=== PATIENT | male | born 1955 | race Caucasian/White ===

== ENCOUNTER 2017-11-30 02:03 | Emergency (ER) | payer OTHER ==
[~2017-11-30] VITALS: Ht 165.1 cm; Wt 65.8 kg
[~2017-11-30 02:03] MED LIST: ASPI81CH PO; ATOR40TA PO; AZOR PO; BENICAR 40MG PO; CITA20 PO; CLOP75 PO; HYDACE7.5 PO; INSLI100I SUBQ; INSULANI SUBQ; JANUMET PO; NEBI10 PO; NITRSPRAY PO; PHENA200 PO; TAMS.4ER PO; VARE1 PO
[2017-11-30] MEDS ORDERED: METO25ER PO (02:09)
[2017-11-30] MEDS ORDERED: TAMS.4ER PO (02:10)
[2017-11-30] MEDS ORDERED: CYCL10 PO (02:11)
[2017-11-30] MEDS ORDERED: TOUJEO SOL300 UNIT/1 SC (02:12)
[2017-11-30 02:19] LABS: PCO2 Arterial 26.4 mmHg (35-45); PO2 Arterial 197 mmHg (80-100); pH Blood Arterial 7.24 (7.35-7.45)
[2017-11-30 02:20] LABS: Calcium, Ionized (POC) 1.17 mmol/L (1.10-1.46); Chloride (POC) 99 mmol/L (98-108); Creatinine (POC) 1.2 mg/dL (0.8-1.3); Glucose (ISTAT POC) 498 mg/dL (70-99); Hemoglobin (POC) 9.5 g/dL (13.5-17.5); Potassium (POC) 3.8 mmol/L (3.5-5.5); Sodium (POC) 135 mmol/L (135-148); Total CO2 (POC) 17 mmol/L (21-32)
[2017-11-30 02:22] LABS: BASOPHILS ABSOLUTE AUTO 0.06 K/mm3 (0.00-0.23); BASOPHILS PERCENT AUTO 0 % (0-2); EOSINOPHILS ABSOLUTE AUTO 0.13 K/mm3 (0.00-0.68); EOSINOPHILS PERCENT AUTO 1 % (0-6); Hematocrit 30.6 % (37.0-53.0); Hemoglobin 10.2 g/dL (13.5-17.5); Mean Corpuscular HGB 30.4 pg (26.0-34.0); Mean Corpuscular HGB Conc 33.3 g/dL (31.5-36.5); Mean Corpuscular Volume 91 fL (80-100); Mean Platelet Volume 12.1 fL (9.1-12.4); Platelet Count 160 K/mm3 (150-400); RDW Coefficient Variation 13.9 % (11.7-14.2); RDW Standard Deviation 46.7 fL (35.1-46.3); Red Blood Cell Count 3.35 M/mm3 (4.30-5.90); White Blood Cell Count 18.83 K/mm3 (4.00-11.30)
[2017-11-30 02:27] LABS: IMMATURE GRAN ABSOLUTE AUTO 0.34 K/mm3 (0.00-0.10); IMMATURE GRAN PERCENT AUTO 2 % (0-1); LYMPHOCYTES ABSOLUTE AUTO 7.25 K/mm3 (0.84-5.20); LYMPHOCYTES PERCENT AUTO 39 % (21-46); MONOCYTES ABSOLUTE AUTO 1.18 K/mm3 (0.16-1.47); MONOCYTES PERCENT AUTO 6 % (4-13); NEUTROPHILS ABSOLUTE AUTO 9.87 K/mm3 (1.96-9.15); NEUTROPHILS PERCENT AUTO 52 % (41-73)
[2017-11-30 02:37] LABS: International Normalized Ratio 1.23; Prothrombin Time Results 12.9 Sec (9.7-11.5)
[2017-11-30 02:39] LABS: Alanine Aminotransfer (ALT/SGP 87 U/L (12-78); Albumin, Blood 2.7 g/dL (3.4-5.0); Albumin/Globulin Ratio 0.9 (0.8-1.8); Alk Phos 54 U/L (50-136); Anion Gap 20 mmol/L (6-16); Aspartate Aminotrans (AST/SGOT 55 U/L (12-37); Blood Urea Nitrogen 34 mg/dL (8-24); Bun/Creatinine Ratio 30.4 (12.0-20.0); CO2, Blood 17 mmol/L (21-32); Calcium, Blood 8.7 mg/dL (8.5-10.1); Chloride, Blood 101 mmol/L (98-108); Creatinine, Blood 1.12 mg/dL (0.60-1.20); Ethanol (Alcohol), Blood, Med <3 mg/dL; Glomerular Filtration Rate >60 (60-); Glucose, Blood 515 mg/dL (70-99); Potassium, Blood 3.9 mmol/L (3.5-5.5); Sodium, Blood 138 mmol/L (136-145); Total Protein, Blood 5.7 g/dL (6.4-8.2)
[2017-11-30 03:00] LABS: Calcium, Ionized (POC) 0.96 mmol/L (1.10-1.46); Chloride (POC) 104 mmol/L (98-108); Creatinine (POC) 0.9 mg/dL (0.8-1.3); Glucose (ISTAT POC) 450 mg/dL (70-99); Hemoglobin (POC) 9.9 g/dL (13.5-17.5); Potassium (POC) 4.1 mmol/L (3.5-5.5); Sodium (POC) 138 mmol/L (135-148); Total CO2 (POC) 14 mmol/L (21-32)
[2017-11-30 03:27] LABS: Source, Urine Catheter
[2017-11-30 03:39] LABS: Bilirubin, Urine Neg (Neg); Blood, Urine 2+ (Neg); Glucose Qualitative, Urine 4+ (Neg); Ketones, Urine 2+ (Neg); Leukocyte Esterase, Urine Neg (Neg); Nitrite, Urine Neg (Neg); Protein, Urine 1+ (Neg); Specific Gravity, Urine 1.015 (1.003-1.022); Urobilinogen, Urine NORM (Normal)
[2017-11-30 03:47] LABS: Appearance, Urine Clear (Clear); Bacteria Few /hpf; Color, Urine Yellow (P-Yellow); Mucus Light (0-Heavy); Squamous Epithelial Cells Not Seen /hpf (Few); White Blood Cells, Urine 0-2 /hpf (0-5)
[2018-02-16] MEDS ORDERED: NADO40 PO (12:33)
[2018-03-29] MEDS ORDERED: EPCLUSA 400 MG1 EACH (15:36)
[2018-07-31] MEDS ORDERED: Metformin HCl500 MG PO (12:25)
[2018-07-31] MEDS ORDERED: PIOG30 PO (12:26)
[2018-07-31] MEDS ORDERED: CYCL10 PO (15:53)
[2018-08-02] MEDS ORDERED: LISI5 PO (15:41)
[2018-08-02] MEDS ORDERED: K-TAB ER20 MEQ PO (15:43)
[2018-08-02] MEDS ORDERED: FURO40 PO (15:44)
== END 2017-11-30 03:40 | disposition short-term general hospital (02) ==
LOC: ER 02:03
PROVIDERS: Emergency Medicine
DX: K92.2 Gastrointestinal hemorrhage, unspecified (principal); Z88.8 Allergy status to other drugs, medicaments and biological substances; Z88.5 Allergy status to narcotic agent; Z79.899 Other long term (current) drug therapy; Z79.4 Long term (current) use of insulin; Z85.51 Personal history of malignant neoplasm of bladder; F17.210 Nicotine dependence, cigarettes, uncomplicated
CPT/HCPCS: 31500; 31720; 36415; 36430; 36556; 36600; 80047; 80053; 81001; 82803; 83690; 85014; 85025; 85610; 85730; 86850; 86900; 86901; 86923; 86927; 93005; 93010; 94002; 96365; 96368; 96375; 99291; 99292; C1751; C9113; G0480; J0330; J0696; J2250; J2405; J7030; J7050; P9016; P9059

== ENCOUNTER 2018-02-16 12:04 | Day surgery (SDC) | payer OTHER ==
[~2018-02-16] VITALS: Ht 165.1 cm; Wt 65.9 kg
[~2018-02-16 12:04] MED LIST changes: +CYCL10 PO; +METO25ER PO; +TOUJEO SOL300 UNIT/1 SC
[2018-02-16] MEDS ORDERED: NADO40 (12:33)
[2018-02-16] MEDS ORDERED: ASPI81CH PO (12:33)
[2018-02-16] MEDS ORDERED: TOUJEO SOL300 UNIT/1 SQ (12:34)
== END 2018-02-16 14:24 | disposition home or self-care (01) ==
LOC: ORSCSDS 12:04
PROVIDERS: Internal Medicine Gastroenterology
PROC: 06L38CZ Occlusion of Esophageal Vein with Extraluminal Device, Via Natural or Artificial Opening Endoscopic (ICD-10-PCS; principal; 2018-02-16 13:15)
DX: I85.00 Esophageal varices without bleeding (principal); K20.9 Esophagitis, unspecified; K31.9 Disease of stomach and duodenum, unspecified; K74.60 Unspecified cirrhosis of liver; B19.20 Unspecified viral hepatitis C without hepatic coma; E11.9 Type 2 diabetes mellitus without complications; I25.10 Atherosclerotic heart disease of native coronary artery without angina pectoris; Z95.1 Presence of aortocoronary bypass graft; I10 Essential (primary) hypertension; E78.5 Hyperlipidemia, unspecified; N40.0 Benign prostatic hyperplasia without lower urinary tract symptoms; F32.9 Major depressive disorder, single episode, unspecified; Z87.891 Personal history of nicotine dependence; Z79.4 Long term (current) use of insulin; Z79.899 Other long term (current) drug therapy
CPT/HCPCS: 82947; J7120

== ENCOUNTER 2018-04-06 09:34 | Day surgery (SDC) | payer OTHER ==
[~2018-04-06] VITALS: Ht 165.1 cm; Wt 66.4 kg
[~2018-04-06 09:34] MED LIST changes: +EPCLUSA 400 MG1 EACH; +NADO40; +TOUJEO SOL300 UNIT/1 SQ
== END 2018-04-06 11:10 | disposition home or self-care (01) ==
LOC: ORSCSDS 09:34
PROVIDERS: Internal Medicine Gastroenterology
PROC: 0DJ08ZZ Inspection of Upper Intestinal Tract, Via Natural or Artificial Opening Endoscopic (ICD-10-PCS; principal; 2018-04-06 10:45)
DX: I85.00 Esophageal varices without bleeding (principal); K31.9 Disease of stomach and duodenum, unspecified; K29.80 Duodenitis without bleeding; B19.20 Unspecified viral hepatitis C without hepatic coma; E11.9 Type 2 diabetes mellitus without complications; J44.9 Chronic obstructive pulmonary disease, unspecified; I25.10 Atherosclerotic heart disease of native coronary artery without angina pectoris; I25.2 Old myocardial infarction; Z79.899 Other long term (current) drug therapy; F17.210 Nicotine dependence, cigarettes, uncomplicated
CPT/HCPCS: 82947; J2250; J7120

== ENCOUNTER 2018-11-08 14:12 | Day surgery (SDC) | payer MEDICARE ==
[~2018-11-08] VITALS: Ht 165.1 cm; Wt 73.9 kg
[~2018-11-08 14:12] MED LIST changes: +FURO40 PO; +K-TAB ER20 MEQ PO; +LISI5 PO; +Metformin HCl500 MG PO; -NADO40; +NADO40 PO; +PIOG30 PO
[2018-11-08] MEDS ORDERED: ISOD40ER PO (15:13)
[2018-11-08] MEDS ORDERED: NITRSPRAY SL (15:15)
--- NOTE | 2018-11-08 15:36 | NUR ---
11/08/18 1536 Oleg Kuo See Anesthesia recordBite Block PlacedPatient to ENDO 1History, Chart, Medications and Allergies reviewed before start of procedure.MONITOR INTACT WITH CONTINUOUS PULSE OXIMETRY AND INTERMITTENT BP.O2 VIA N/C INTACT THROUGHOUT SEDATION/PROCEDURE.
== END 2018-11-08 23:00 | disposition home or self-care (01) ==
LOC: ORSCMMR 14:12 → ORD 16:00 → ORSCMMR 23:00
PROVIDERS: Internal Medicine Gastroenterology
PROC: 0DJ08ZZ Inspection of Upper Intestinal Tract, Via Natural or Artificial Opening Endoscopic (ICD-10-PCS; principal; 2018-11-08 16:00)
DX: I85.00 Esophageal varices without bleeding (principal); K76.6 Portal hypertension; K31.89 Other diseases of stomach and duodenum; K29.80 Duodenitis without bleeding; B19.20 Unspecified viral hepatitis C without hepatic coma; I10 Essential (primary) hypertension; I25.10 Atherosclerotic heart disease of native coronary artery without angina pectoris; E11.9 Type 2 diabetes mellitus without complications; F17.210 Nicotine dependence, cigarettes, uncomplicated; Z79.899 Other long term (current) drug therapy
CPT/HCPCS: 82947; J2250; J7120

== ENCOUNTER 2019-11-29 08:52 | Day surgery (SDC) | payer MEDICARE ==
[~2019-11-29] VITALS: Ht 165.1 cm; Wt 64.9 kg
[~2019-11-29 08:52] MED LIST changes: +ISOD40ER PO; +NITRSPRAY SL
[2019-11-29] MEDS ORDERED: METO25ER (09:39)
[2019-11-29] MEDS ORDERED: GABA100 (09:40)
== END 2019-11-29 11:00 | disposition home or self-care (01) ==
LOC: ORSCSDS 08:52
PROVIDERS: Internal Medicine Gastroenterology
PROC: 0DBP8ZX Excision of Rectum, Via Natural or Artificial Opening Endoscopic, Diagnostic (ICD-10-PCS; principal; 2019-11-29 10:00)
PROC: 0DBM8ZX Excision of Descending Colon, Via Natural or Artificial Opening Endoscopic, Diagnostic (ICD-10-PCS; principal; 2019-11-29 10:00)
PROC: 0DBK8ZX Excision of Ascending Colon, Via Natural or Artificial Opening Endoscopic, Diagnostic (ICD-10-PCS; principal; 2019-11-29 10:00)
DX: K92.1 Melena (principal); Z86.010 Personal history of colon polyps; D12.5 Benign neoplasm of sigmoid colon; D12.2 Benign neoplasm of ascending colon; K62.1 Rectal polyp; K64.8 Other hemorrhoids; E11.22 Type 2 diabetes mellitus with diabetic chronic kidney disease; E11.65 Type 2 diabetes mellitus with hyperglycemia; I12.9 Hypertensive chronic kidney disease with stage 1 through stage 4 chronic kidney disease, or unspecified chronic kidney disease; N18.2 Chronic kidney disease, stage 2 (mild); Z79.4 Long term (current) use of insulin; G35 Multiple sclerosis; F17.210 Nicotine dependence, cigarettes, uncomplicated; K74.69 Other cirrhosis of liver; B19.20 Unspecified viral hepatitis C without hepatic coma; I25.10 Atherosclerotic heart disease of native coronary artery without angina pectoris; I50.9 Heart failure, unspecified; E11.40 Type 2 diabetes mellitus with diabetic neuropathy, unspecified
CPT/HCPCS: 82947; 88305; J2370; J2704; J7120

== ENCOUNTER → 2021-12-20 | Outpatient (CLI) | payer MEDICARE ==
[~2021-12-20] MED LIST changes: +GABA100; +METO25ER
== END | disposition home or self-care (01) ==
LOC: LAB 11:34 → LAB SHORT 11:34
DX: L89.899 Pressure ulcer of other site, unspecified stage (principal)
CPT/HCPCS: 87070; 87077; 87147; 87186; 87205

== ENCOUNTER 2022-12-31 10:20 | Day surgery (SDC) | payer MEDICARE ==
[~2022-12-31] VITALS: Ht 165.1 cm; Wt 69.3 kg
[~2022-12-31 10:20] MED LIST changes: +TIZA4 PO; +TRULICITY0.75 MG/01 INJ
[2022-12-31] MEDS ORDERED: PANT40 PO (11:17)
[2022-12-31] MEDS ORDERED: POTCHL20ER PO (11:18)
[2022-12-31] MEDS ORDERED: Isosorbide Mono30 MG (11:18)
--- NOTE | 2022-12-31 11:23 | NUR ---
12/31/22 1123 Coral Bonilla AT 1105 PLE[address] 110
== END 2022-12-31 12:41 | disposition home or self-care (01) ==
LOC: ORSCSDS 10:20
PROVIDERS: Ophthalmology
PROC: 08DK3ZZ Extraction of Left Lens, Percutaneous Approach (ICD-10-PCS; principal; 2022-12-31 11:30)
DX: E11.36 Type 2 diabetes mellitus with diabetic cataract (principal); H25.13 Age-related nuclear cataract, bilateral; I12.9 Hypertensive chronic kidney disease with stage 1 through stage 4 chronic kidney disease, or unspecified chronic kidney disease; E11.22 Type 2 diabetes mellitus with diabetic chronic kidney disease; N18.9 Chronic kidney disease, unspecified; I25.2 Old myocardial infarction; I25.10 Atherosclerotic heart disease of native coronary artery without angina pectoris; I50.9 Heart failure, unspecified; Z79.4 Long term (current) use of insulin; Z79.899 Other long term (current) drug therapy
CPT/HCPCS: 82947; J2001; J2250; J3010; J3301; J7040; V2632

== ENCOUNTER 2023-01-07 10:15 | Day surgery (SDC) | payer MEDICARE ==
[~2023-01-07] VITALS: Ht 165.1 cm; Wt 68.4 kg
[~2023-01-07 10:15] MED LIST changes: +Isosorbide Mono30 MG; +PANT40 PO; +POTCHL20ER PO
== END 2023-01-07 12:26 | disposition home or self-care (01) ==
LOC: ORSCSDS 10:15
PROVIDERS: Ophthalmology
PROC: 08DJ3ZZ Extraction of Right Lens, Percutaneous Approach (ICD-10-PCS; principal; 2023-01-07 11:30)
DX: E11.36 Type 2 diabetes mellitus with diabetic cataract (principal); H25.11 Age-related nuclear cataract, right eye; Z96.1 Presence of intraocular lens; E11.22 Type 2 diabetes mellitus with diabetic chronic kidney disease; I12.9 Hypertensive chronic kidney disease with stage 1 through stage 4 chronic kidney disease, or unspecified chronic kidney disease; N18.9 Chronic kidney disease, unspecified; G62.9 Polyneuropathy, unspecified; I25.10 Atherosclerotic heart disease of native coronary artery without angina pectoris; I25.2 Old myocardial infarction; F17.210 Nicotine dependence, cigarettes, uncomplicated; F32.A Depression, unspecified; F41.9 Anxiety disorder, unspecified; E78.5 Hyperlipidemia, unspecified; Z79.4 Long term (current) use of insulin; Z79.899 Other long term (current) drug therapy
CPT/HCPCS: 82947; J2001; J2250; J3010; J3301; J7040; V2632

== ENCOUNTER 2023-12-01 17:50 | Observation (INO) | payer MEDICARE ==
[~2023-12-01] VITALS: Ht 170.2 cm; Wt 62.5 kg
[~2023-12-01 17:50] MED LIST changes: -Budeprion Xl300 MG PO; -FUROSEMIDE40 MG PO; -KETOROLAC TROMET3 ML BOTHEYES; -NITROGLYCERIN0.4 M3 SL; -TRULICITY1.5 MG/0.1 SC
[2023-12-01] MEDS ORDERED: FentaNYL Citrate 50 MCG/ML 2 ML Injection IV ONE (18:40)
[2023-12-01] MEDS ORDERED: Ondansetron HCl 2 MG / ML 2ML Vial IV ONE (18:40)
[2023-12-01 18:43] LABS: BASOPHILS ABSOLUTE AUTO 0.05 K/mm3 (0.00-0.23); BASOPHILS PERCENT AUTO 0 % (0-2); EOSINOPHILS ABSOLUTE AUTO 0.03 K/mm3 (0.00-0.68); EOSINOPHILS PERCENT AUTO 0 % (0-6); Hematocrit 38.9 % (37.0-53.0); Hemoglobin 13.2 g/dL (13.5-17.5); IMMATURE GRAN ABSOLUTE AUTO 0.16 K/mm3 (0.00-0.10); IMMATURE GRAN PERCENT AUTO 1 % (0-1); LYMPHOCYTES ABSOLUTE AUTO 0.96 K/mm3 (0.84-5.20); LYMPHOCYTES PERCENT AUTO 8 % (21-46); MONOCYTES ABSOLUTE AUTO 0.67 K/mm3 (0.16-1.47); MONOCYTES PERCENT AUTO 6 % (4-13); Mean Corpuscular HGB 28.8 pg (26.0-34.0); Mean Corpuscular HGB Conc 33.9 g/dL (31.5-36.5); Mean Corpuscular Volume 85 fL (80-100); Mean Platelet Volume 11.2 fL (9.1-12.4); NEUTROPHILS ABSOLUTE AUTO 9.76 K/mm3 (1.96-9.15); NEUTROPHILS PERCENT AUTO 84 % (41-73); Platelet Count 233 K/mm3 (150-400); RDW Standard Deviation 39.9 fL (35.1-46.3); Red Blood Cell Count 4.59 M/mm3 (4.30-5.90); White Blood Cell Count 11.63 K/mm3 (4.00-11.30)
[2023-12-01 19:06] LABS: Albumin, Blood 3.1 g/dL (3.4-5.0); Albumin/Globulin Ratio 0.7 (0.8-1.8); Bilirubin, Total 1.2 mg/dL (0.1-1.0); Calcium, Blood 9.2 mg/dL (8.5-10.1); Creatinine, Blood 1.53 mg/dL (0.60-1.20); Globulin, Blood 4.5 g/dL (2.2-4.0); Potassium, Blood 5.1 mmol/L (3.5-5.5); Total Protein, Blood 7.6 g/dL (6.4-8.2)
[2023-12-01] MEDS ORDERED: Ondansetron HCl 2 MG / ML 2ML Vial IV PRN (22:25)
[2023-12-01] MEDS ORDERED: FLU VACC QS2023-24(6MOS UP)/PF 60 MCG/0.5 ML SYRINGE IM ONE (22:30)
[2023-12-01] MEDS ORDERED: FentaNYL Citrate 50 MCG/ML 2 ML Injection IV PRN (22:30)
[2023-12-01] MEDS ORDERED: Nitroglycerin 0.4 MG SUBL SL PRN (22:30)
[2023-12-01] MEDS ORDERED: Enoxaparin 40 MG/0.4 ML SYR SC SCH (23:00)
[2023-12-01] MEDS ORDERED: NS 1,000 ML IV ONE (23:25)
[2023-12-01] MEDS ORDERED: KETOROLAC TROMET3 ML BOTHEYES (23:54)
[2023-12-01] MEDS ORDERED: FUROSEMIDE40 MG PO (23:55)
[2023-12-01] MEDS ORDERED: TRULICITY1.5 MG/0.1 SC (23:56)
[2023-12-01] MEDS ORDERED: NITROGLYCERIN0.4 M3 SL (23:57)
[2023-12-01] MEDS ORDERED: Budeprion Xl300 MG PO (23:57)
[2023-12-02 00:49] VITALS: BP 101/61
--- NOTE | 2023-12-02 00:50 | NUR ---
ADMIT NOTE 68 YR OLD MALE ADMITTED TO FLOOR FROM THE ED WITH DX OF CHEST PAIN. REPORTED PT WOKE UP YESTERDAY AM WITH CP, CAME TO THE ED. RECEIVED FENTANYL IV IN THE ED, SMILING AT THIS TIME, VOICED FEELING BETTER. ORIENTED X 4. ORIENTED TO USE OF CALL LIGHT. CALL LIGHT IN REACH. RAILS UP X 2 FOR SAFETY.
[2023-12-02] MEDS ORDERED: Mag Hydrox/Al Hydrox/Simeth 72 ML,Lidocaine 2% Viscous Soln 36 ML,Atropine/Scopalam/Hyo... PO PRN (03:20)
[2023-12-02] MEDS ORDERED: Insulin Glargine-Yfgn 100 Unit/mL 3 ML SYR SC SCH (04:00)
[2023-12-02 04:06] VITALS: BP 121/66
--- NOTE | 2023-12-02 04:26 | NUR ---
MACHINE MILKER SUMMARY VSS. WAS ADMITTED ERALIER IN THE SHIFT WITH DX OF CHEST PAIN. ALERT AND ORIENTED. HAS DENIED PAIN WHEN ASKED THIS SHIFT. IVF OF NS INFUSING AT 75 ML/HR. NPO. RESPS EVEN. HAS BEEN RESTING QUIETLY WITH FEW INTERRUPTIONS NOTED. CALL LIGHT IN REACH. RAILS UP X 2 FOR SAFETY. WILL CONTINUE TO MONITOR
[2023-12-02] MEDS ORDERED: TiZANidine HCl 4 MG Tab PO PRN (06:20)
[2023-12-02 07:21] VITALS: BP 129/72
[2023-12-02 07:22] LABS: BASOPHILS ABSOLUTE AUTO 0.03 K/mm3 (0.00-0.23); BASOPHILS PERCENT AUTO 0 % (0-2); EOSINOPHILS ABSOLUTE AUTO 0.11 K/mm3 (0.00-0.68); EOSINOPHILS PERCENT AUTO 1 % (0-6); Hematocrit 35.7 % (37.0-53.0); Hemoglobin 11.7 g/dL (13.5-17.5); IMMATURE GRAN ABSOLUTE AUTO 0.09 K/mm3 (0.00-0.10); IMMATURE GRAN PERCENT AUTO 1 % (0-1); LYMPHOCYTES PERCENT AUTO 15 % (21-46); MONOCYTES ABSOLUTE AUTO 0.76 K/mm3 (0.16-1.47); MONOCYTES PERCENT AUTO 8 % (4-13); Mean Corpuscular HGB Conc 32.8 g/dL (31.5-36.5); Mean Corpuscular Volume 85 fL (80-100); Mean Platelet Volume 11.2 fL (9.1-12.4); NEUTROPHILS ABSOLUTE AUTO 6.72 K/mm3 (1.96-9.15); NEUTROPHILS PERCENT AUTO 74 % (41-73); Platelet Count 192 K/mm3 (150-400); RDW Coefficient Variation 13.1 % (11.7-14.2); RDW Standard Deviation 40.6 fL (35.1-46.3); Red Blood Cell Count 4.18 M/mm3 (4.30-5.90); White Blood Cell Count 9.11 K/mm3 (4.00-11.30)
[2023-12-02] MEDS ORDERED: Insulin Human Lispro 100 Units/ML 3ML Syringe SC SCH ×2 (07:30→21:37)
[2023-12-02 07:39] LABS: Albumin, Blood 2.7 g/dL (3.4-5.0); Albumin/Globulin Ratio 0.7 (0.8-1.8); Bilirubin, Total 0.8 mg/dL (0.1-1.0); Bun/Creatinine Ratio 20.3 (12.0-20.0); Calcium, Blood 8.7 mg/dL (8.5-10.1); Creatinine, Blood 1.48 mg/dL (0.60-1.20); Globulin, Blood 3.9 g/dL (2.2-4.0); Potassium, Blood 4.5 mmol/L (3.5-5.5); Total Protein, Blood 6.6 g/dL (6.4-8.2)
[2023-12-02] MEDS ORDERED: Tamsulosin HCl 0.4 MG Cap PO SCH (09:00)
[2023-12-02] MEDS ORDERED: Metoprolol Succinate 25 MG TABCR PO SCH (09:00)
[2023-12-02] MEDS ORDERED: Gabapentin 300 MG Cap PO SCH (09:00)
[2023-12-02] MEDS ORDERED: buPROPion HCL 150 MG TAB.SR.12H PO SCH (09:00)
[2023-12-02] MEDS ORDERED: Pantoprazole Sodium 40 MG Tab PO SCH (09:00)
[2023-12-02] MEDS ORDERED: Ketorolac 0.5% Opth Soln BTL BOTHEYES SCH (09:00)
[2023-12-02] MEDS ORDERED: Furosemide 40 MG Tab PO SCH (09:00)
[2023-12-02] MEDS ORDERED: Regadenoson 0.4 MG/5 ML SYRINGE ONE (14:42)
[2023-12-02] MEDS ORDERED: Caffeine Citrated 60 MG/3 ML Vial ONE (14:42)
[2023-12-02 15:38] VITALS: BP 117/78
--- NOTE | 2023-12-02 16:33 | NUR ---
SHIFT SUMMARY; PATIENT HAD BOTH PARTS OF STRESS TEST TODAY. FINISHING LATE THIS AFTERNOON. NO ACUTE CHANGES IN CONDITION NOTED. SPOUSE AT BEDSIDE. PATIENT DENIES ANY CP OR PRESSURE AT THIS TIME. VITAL SIGNS ARE WNL. WILL CONTINUE TO MONITOR THIS PATIENT CLOSELY FOR ANY WANTS OR NEEDS THAT COME UP PRIOR TO SHIFT CHANGE AND REPORT AT NOC SHIFT.
[2023-12-02] MEDS ORDERED: Mag Hydrox/Al Hydrox/Simeth 18 ML,Lidocaine 2% Viscous Soln 9 ML,Atropine/Scopalam/Hyos... PO ONE (17:20)
[2023-12-02 19:24] VITALS: BP 127/68
[2023-12-03 04:44] VITALS: BP 154/68
--- NOTE | 2023-12-03 04:44 | NUR ---
Shift Summary Patient is a 68 year old male who was admitted due to chest pain. He had a stress test done today. He is on tele with a sinus rhrthm at 86. He denies pain this shift. He is on room air. His blood sugar at 9 pm was 340. He received 2 units of insulin per sliding scale. He is alert and oriented. Independently ambulatory in the room. His bed is in low position with call light in reach.
[2023-12-03 05:19] LABS: BASOPHILS ABSOLUTE AUTO 0.04 K/mm3 (0.00-0.23); BASOPHILS PERCENT AUTO 0 % (0-2); EOSINOPHILS ABSOLUTE AUTO 0.08 K/mm3 (0.00-0.68); EOSINOPHILS PERCENT AUTO 1 % (0-6); Hematocrit 35.7 % (37.0-53.0); IMMATURE GRAN ABSOLUTE AUTO 0.09 K/mm3 (0.00-0.10); IMMATURE GRAN PERCENT AUTO 1 % (0-1); LYMPHOCYTES ABSOLUTE AUTO 1.13 K/mm3 (0.84-5.20); LYMPHOCYTES PERCENT AUTO 12 % (21-46); MONOCYTES ABSOLUTE AUTO 0.69 K/mm3 (0.16-1.47); MONOCYTES PERCENT AUTO 8 % (4-13); Mean Corpuscular HGB 28.4 pg (26.0-34.0); Mean Corpuscular HGB Conc 33.6 g/dL (31.5-36.5); Mean Corpuscular Volume 85 fL (80-100); Mean Platelet Volume 11.3 fL (9.1-12.4); NEUTROPHILS ABSOLUTE AUTO 7.06 K/mm3 (1.96-9.15); NEUTROPHILS PERCENT AUTO 78 % (41-73); Platelet Count 173 K/mm3 (150-400); RDW Standard Deviation 39.7 fL (35.1-46.3); Red Blood Cell Count 4.22 M/mm3 (4.30-5.90); White Blood Cell Count 9.09 K/mm3 (4.00-11.30)
[2023-12-03 05:47] LABS: Calcium, Blood 8.6 mg/dL (8.5-10.1); Creatinine, Blood 1.37 mg/dL (0.60-1.20)
[2023-12-03 07:51] VITALS: BP 147/85
--- NOTE | 2023-12-03 12:12 | NUR ---
RECEIVED A CALL FROM [facility] TECH AT 1208. PER NOLVIA UPON REVIEWING PATIENT TELE STRIPS HE NOTIVED PATIENT HAD EPISODE OF QTC AT 0600 OF 0.48 AND ANOTHER EPISODE AT 1100 OF 0.50. REPORTS TO PLANT CONTROL OPERATOR, PHIL AND DR. SYLVESTER REGARDING THIS CONCERN. NO NEW ORDER RECEIVED.
[2023-12-03 15:35] VITALS: BP 120/73
--- NOTE | 2023-12-03 16:47 | NUR ---
SHIFT/DISCHARGE SUMMARY: PATIENT A/OX4, ANSWER TO QUESTIONS APPROPRIATELY AND ABLE TO MAKE NEEDS KNOWN. PATIENT HAD EPISODE OF CHEST PRESSURE AT 0800, DENIES CP, N/V, SOB AND DIZZINESS. PATIENT ON TELE, SR HR IN THE 90'S BPM. PATIENT HAD OT QTC EPISODE AT 1100 (SEE NOTE). PATIENT HAS BEEN AMBULATING IN ROOM AND HALLWAY T/O THE DAY. PATIENT REPORTS NO CHEST PAIN/DISCOMFORT c AMBULATIONS. PATIENT HAD CT TO ABDOMEN TODAY, DR. SYLVESTER SPOKE TO PATIENT/SPOUSE c REGARDS TO CT RESULT. PATIENT HAD A MAX TEMP OF 100.5 THIS SHIFT. PATIENT RECEIVED SCHEDULED MEDS PER EMAR. VITAL SIGNS REVIEWED. PIV TO LAC WAS DC'D BY BERNY WALLACE. PATIENT DISCHARGE HOME. DISCHARGE INSTRUCTIONS PACKET GIVEN TO PATIENT. EDUCATE PATIENT REGARDING ADMITTING DX'S OF CP, S/S, TX, AND TO FOLLOW c PCP. PATIENT/SPOUSE VERBALIZED UNDERSTANDING AND NO FURTHER QUESTIONS. PATIENT HAS NO NEW MEDS ORDERED. ALL PATIENT PERSONAL BELONGINGS WERE SENT HOME c THE PATIENT. PATIENT LEFT THE ROOM AT 1630 AND WAS TRANSPORTED VIA WHEELCHAIR BY [facility] TO PATIENT ENTRANCE.
== END 2023-12-03 16:42 | disposition home or self-care (01) ==
LOC: ER 17:50 → ERHOLD 17:51 → MEDS 17:51 → ENPENDDIS 12-03 15:48 → MEDS 12-03 16:42
PROVIDERS: Emergency Medicine; Internal Medicine; ADMIT Internal Medicine
DX: R07.89 Other chest pain (principal); C22.0 Liver cell carcinoma; I25.10 Atherosclerotic heart disease of native coronary artery without angina pectoris; N17.9 Acute kidney failure, unspecified; N18.9 Chronic kidney disease, unspecified; E78.5 Hyperlipidemia, unspecified; Z86.73 Personal history of transient ischemic attack (TIA), and cerebral infarction without residual deficits; K74.60 Unspecified cirrhosis of liver; B19.20 Unspecified viral hepatitis C without hepatic coma; Z88.5 Allergy status to narcotic agent; Z88.1 Allergy status to other antibiotic agents; Z88.8 Allergy status to other drugs, medicaments and biological substances; Z79.4 Long term (current) use of insulin; E11.22 Type 2 diabetes mellitus with diabetic chronic kidney disease
CPT/HCPCS: 36415; 71046; 71260; 74170; 78452; 80048; 80053; 82105; 82947; 83690; 83880; 84484; 85025; 85379; 93005; 93010; 93017; 96361; 96374-59; 96375-59; 96376-59; 99285-25; A9270; A9500; G0378; J0706; J1650; J1815; J2405; J2785; J3010; J7030; Q9967

== ENCOUNTER → 2023-12-01 | Outpatient (CLI) | payer MEDICARE ==
[~2023-12-01] MED LIST changes: +Budeprion Xl300 MG PO; +FUROSEMIDE40 MG PO; -GABA100; +GABA300 PO; +KETOROLAC TROMET3 ML BOTHEYES; -METO25ER; +NITROGLYCERIN0.4 M3 SL; +TRULICITY1.5 MG/0.1 SC
[2023-12-01 17:54] LABS: BASOPHILS ABSOLUTE AUTO 0.04 K/mm3 (0.00-0.23); BASOPHILS PERCENT AUTO 0 % (0-2); EOSINOPHILS ABSOLUTE AUTO 0.05 K/mm3 (0.00-0.68); EOSINOPHILS PERCENT AUTO 0 % (0-6); Hematocrit 40.8 % (37.0-53.0); Hemoglobin 13.5 g/dL (13.5-17.5); IMMATURE GRAN ABSOLUTE AUTO 0.19 K/mm3 (0.00-0.10); IMMATURE GRAN PERCENT AUTO 2 % (0-1); LYMPHOCYTES ABSOLUTE AUTO 1.25 K/mm3 (0.84-5.20); LYMPHOCYTES PERCENT AUTO 10 % (21-46); MONOCYTES ABSOLUTE AUTO 0.87 K/mm3 (0.16-1.47); MONOCYTES PERCENT AUTO 7 % (4-13); Mean Corpuscular HGB 28.2 pg (26.0-34.0); Mean Corpuscular HGB Conc 33.1 g/dL (31.5-36.5); Mean Corpuscular Volume 85 fL (80-100); Mean Platelet Volume 11.6 fL (9.1-12.4); NEUTROPHILS ABSOLUTE AUTO 9.69 K/mm3 (1.96-9.15); NEUTROPHILS PERCENT AUTO 80 % (41-73); Platelet Count 253 K/mm3 (150-400); Red Blood Cell Count 4.78 M/mm3 (4.30-5.90); White Blood Cell Count 12.09 K/mm3 (4.00-11.30)
[2023-12-01 18:05] LABS: Albumin, Blood 3.1 g/dL (3.4-5.0); Albumin/Globulin Ratio 0.7 (0.8-1.8); Bilirubin, Total 1.3 mg/dL (0.1-1.0); Bun/Creatinine Ratio 11.2 (12.0-20.0); Calcium, Blood 9.5 mg/dL (8.5-10.1); Creatinine, Blood 2.06 mg/dL (0.60-1.20); Globulin, Blood 4.7 g/dL (2.2-4.0); Potassium, Blood 4.9 mmol/L (3.5-5.5); Total Protein, Blood 7.8 g/dL (6.4-8.2)
== END ==
LOC: LAB SHORT 17:43 → LAB 17:43
PROVIDERS: Family Medicine
DX: R07.9 Chest pain, unspecified (principal)
CPT/HCPCS: 80053; 84484; 85025; 85379